=== PATIENT | male | born 1990 | race Caucasian/White ===

== ENCOUNTER 2021-09-27 11:45 | Emergency (ER) | payer BC, SELFPAY ==
[2021-09-27 11:55] VITALS: BP 103/74; PULSE 82; RESP 14; TEMP 36.6; O2SAT 98
[2021-09-27] MEDS: TETANUS,DIPHTHERIA,AC PERTUSSIS ADULT (0.5 ML) BOOSTRIX IM (13:45)
[2021-09-27] MEDS: LIDOCAINE HCL 1% LOCAL INJ 20 ML VIAL INFILTRATE (13:48)
--- NOTE | 2021-09-27 13:48 | ED.WOUNDLAC ---
HPI - Wound/Laceration General Chief Complaint: Wound/Laceration Stated Complaint: hand laceration Time Seen by Provider: 09/27/21 11:48 Source: patient Mode of arrival: ambulatory Limitations: no limitations History of Present Illness HPI narrative: 31-year-old with no major medical problems here with complaints of right index finger laceration sustained this morning while opening the can. He denies any other injuries. Tetanus not up-to-date. Onset (ago): hour(s) (1) Location: other (Right index finger) Place: home Patient tetanus UTD: No Context: accidental Associated symptoms: none Related Data Allergies Allergy/AdvReac Type Severity Reaction Status Date / Time NKDA Allergy Mild Uncoded 05/19/10 13:24 Review of Systems Review of Systems: All systems reviewed & are unremarkable except as noted in HPI and below Constitutional: Constitutional: Reports no additional constitutional complaints Eyes: Eyes: Reports no additional eye complaints ENT: Reports system reviewed and no additional complaints, except as documented Cardiovascular: Cardiovascular: Reports no additional cardiovascular complaints Respiratory: Respiratory: Reports no additional respiratory complaints Gastrointestinal: Gastrointestinal: Reports no additional gastrointestinal complaints Musculoskeletal: Musculoskeletal: Reports no additional musculoskeletal complaints Neurologic: Reports system reviewed and no additional complaints, except as documented Psychiatric: Psychiatric: Reports no additional psychiatric complaints Exam Narrative: GENERAL: Well-appearing, well-nourished, and in no acute distress. HEAD: Normocephalic, atraumatic. EYES: PERRLA and EOMI. ENT: Nares clear, no rhinorrhea or epistaxis. Mucous membranes moist. NECK: Supple. CHEST: Clear to auscultation. No respiratory distress. HEART: Regular rate and rhythm. . EXTREMITIES: Normal range of motion. No edema. 2 centimeter laceration on the DIP on palmar aspect right ring finger with active bleeding SKIN: Warm, dry, no rash. NEURO: No focal deficits. Alert and oriented x3. PSYCH: Normal mood and affect. Course Vital Signs Vital signs: Vital Signs Temperature 36.6 C 09/27/21 11:55 Pulse Rate 82 09/27/21 11:55 Respiratory Rate 14 09/27/21 11:55 Blood Pressure 103/74 09/27/21 11:55 Pulse Oximetry 98 09/27/21 11:55 Temperature 36.6 C 09/27/21 11:55 Pulse Rate 82 12/30/21 11:55 Respiratory Rate 14 09/27/21 11:55 Blood Pressure 103/74 09/27/21 11:55 Pulse Oximetry 98 09/27/21 11:55 Procedures Laceration Laceration 1: Date: 09/27/21 Time: 13:57 Site: hand (right ring finger ) Side (If applicable): right Size (cm): 2 Description: linear Local Anesthetic: lidocaine 1% ====== Skin Level ====== Skin layer closed with: nylon (4) Size (cm): 4-0 Number of sutures: 5 Technique: running ====== Subcutaneous Layer ====== Technique: running ====== Muscle Layer ====== ====== Tendon Layer ====== Discharge Plan Discharge Clinical Impression: Laceration of finger Qualifiers: Encounter type: initial encounter Finger: ring finger Damage to nail status: without damage Foreign body presence: without foreign body Laterality: right Qualified Code(s): S61.214A - Laceration without foreign body of right ring finger without damage to nail, initial encounter Patient Disposition: Home, Self-Care Condition: Stable Instructions: Antibiotic Form, Laceration (ED) Additional Instructions: Sutures off 7 to 10 days , keep the wound clean , if infection follow with your doctor Follow-up/Referrals: Silverio Alvarez MD [Physician] - PHYSICIAN NOT ON STAFF,NONSTAFF [Primary Care Provider] - Time of Disposition: 13:51
== END 2021-09-27 13:57 | disposition home or self-care (01) ==
PROVIDERS: Emergency Provider Family Medicine
DX: S61.214A Laceration without foreign body of right ring finger without damage to nail, initial encounter (principal); W26.8XXA Contact with other sharp object(s), not elsewhere classified, initial encounter; Z23 Encounter for immunization
CPT/HCPCS: 12001; 90471; 90715; 99282